=== PATIENT | female | born 1980 | race Caucasian/White ===

== ENCOUNTER 2016-12-11 08:41 | Emergency (ER) | payer OTHER, MEDICAID ==
[~2016-12-11] VITALS: Ht 154.9 cm; Wt 98.5 kg
[~2016-12-11 08:41] MED LIST: BLOOD GLUCOSE M1 KIT; GLIP5TAB8 PO; LISI-515 PO; METF1000 PO; MOBI15TA PO; PROP60TA PO
[2016-12-11 08:44] VITALS: BP 175/98; PULSE 124; RESP 18; TEMP 99.6; O2SAT 99
[2016-12-11] MEDS ORDERED: KETOROLAC TROMETHAMINE 30 MG/ML (IVP) VIAL IV PUSH ONE (09:30)
[2016-12-11 10:00] VITALS: BP 140/79; PULSE 120; RESP 16; O2SAT 97
--- NOTE | 2016-12-11 10:22 | PD ---
HPI Chief Complaint: Musculoskeletal Complaint Time Seen by Provider: 09:30 Travel History International Travel<30 days: No Contact w/Intl Traveler<30days: No Traveled to known affect area: No History of Present Illness HPI This is a 36-year-old female with a history of diabetes, and presents today with complaints of diffuse joint pain. The patient reports that all of her joints in her body hurt. She states that it was so severe today that she had difficulty getting out of bed. She does report recently she was started on a new diabetes medicine. She states she stopped it one week ago because they were concerned that it may be causing joint pain. She denies any fevers, chills. She denies any other complaints at the time of my examination. [facility] Past Medical History Diabetes: Yes (niddm) Hypertension: Yes Immunizations Current: Yes ?: Not LMP: 12/06/16 Social History Alcohol Use: Yes Tobacco Use: Yes Substance Use: No Allergies-Medications (Allergen,Severity, Reaction): Uncoded Allergies: TRADJENTA (Adverse Reaction, Intermediate, JOINT PAIN, 12/11/16) Reported Meds & Prescriptions Reported Meds & Active Scripts Active Naprosyn (Naproxen) 250 Mg Tab 250 Mg PO BID Glipizide 5 Mg Tab 5 Mg PO DAILY Take 30 minutes before a meal Mobic (Meloxicam) 15 Mg Tab 15 Mg PO DAILY Propranolol (Propranolol HCl) 60 Mg Tab 60 Mg PO DAILY Lisinopril 20 Mg Tab 20 Mg PO DAILY Blood Glucose Monitoring W/Device (Device) 1 Kit Kit 1 Kit .ROUTE Reported Metformin (Metformin HCl) 1,000 Mg Tab 1,000 Mg PO DAILY With a meal Review of Systems Except as stated in HPI: all other systems reviewed are Neg General / Constitutional: No: Fever, Chills HENT: No: Headaches, Lightheadedness Cardiovascular: No: Chest Pain or Discomfort, Palpitations Respiratory: No: Shortness of Breath Gastrointestinal: No: Nausea, Vomiting, Abdominal Pain Genitourinary: No: Frequency, Dysuria Musculoskeletal: Positive: Myalgias, Arthralgias, Edema (neck swelling.) Skin: No Rash, No Itching Neurologic: No: Weakness, Headache Physical Exam Narrative GENERAL: Well-nourished, well-developed patient. SKIN: Focused skin assessment warm/dry. HEAD: Normocephalic/atraumatic. EYES: No scleral icterus. No injection or drainage. NECK: Supple, trachea midline. No JVD or lymphadenopathy. CARDIOVASCULAR: Regular rate and rhythm without murmurs, gallops, or rubs. RESPIRATORY: Breath sounds equal bilaterally. No accessory muscle use. GASTROINTESTINAL: Abdomen soft, non-tender, nondistended. MUSCULOSKELETAL: No cyanosis, or edema. The patient has some warmth to her joints bilaterally in her ankles and elbows and shoulders. There is no redness. She has full range of motion. She reports pain with flexion and extension. NEUROLOGICAL: Awake and alert. Cranial nerves II through XII intact. Motor grossly within normal limits. Five out of 5 muscle strength in all muscle groups. Normal speech. Data Data Last Documented VS Vital Signs Date Time Temp Pulse Resp B/P Pulse Ox O2 Delivery O2 Flow Rate FiO2 12/11/16 10:00 120 16 140/79 97 Room Air 12/11/16 08:44 99.6 Orders Complete Blood Count With Diff (12/11/16 09:30) Comprehensive Metabolic Panel (12/11/16 09:30) Westergren Sedimentation Rate (12/11/16 09:30) Ketorolac Inj (Toradol Inj) (12/11/16 09:30) Labs Laboratory Tests Test 12/11/16 10:15 White Blood Count 8.7 TH/MM3 Red Blood Count 4.57 MIL/MM3 Hemoglobin 12.9 GM/DL Hematocrit 37.5 % Mean Corpuscular Volume 82.0 FL Mean Corpuscular Hemoglobin 28.2 PG Mean Corpuscular Hemoglobin 34.4 % Concent Red Cell Distribution Width 12.5 % Platelet Count 257 TH/MM3 Mean Platelet Volume 9.6 FL Neutrophils (%) (Auto) 64.8 % Lymphocytes (%) (Auto) 25.4 % Monocytes (%) (Auto) 6.4 % Eosinophils (%) (Auto) 2.5 % Basophils (%) (Auto) 0.9 % Neutrophils # (Auto) 5.7 TH/MM3 Lymphocytes # (Auto) 2.2 TH/MM3 Monocytes # (Auto) 0.6 TH/MM3 Eosinophils # (Auto) 0.2 TH/MM3 Basophils # (Auto) 0.1 TH/MM3 CBC Comment DIFF FINAL Differential Comment Erythrocyte Sedimentation Rate 58 mm/hr Sodium Level 136 MEQ/L Potassium Level 4.3 MEQ/L Chloride Level 102 MEQ/L Carbon Dioxide Level 24.3 MEQ/L Anion Gap 10 MEQ/L Blood Urea Nitrogen 11 MG/DL Creatinine 0.67 MG/DL Estimat Glomerular Filtration 101 ML/MIN Rate Random Glucose 252 MG/DL Calcium Level 8.8 MG/DL Total Bilirubin 0.4 MG/DL Aspartate Amino Transf 26 U/L (AST/SGOT) Alanine Aminotransferase 41 U/L (ALT/SGPT) Alkaline Phosphatase 86 U/L Total Protein 7.5 GM/DL Albumin 3.1 GM/DL MDM Medical Decision Making Medical Screen Exam Complete: Yes Emergency Medical Condition: Yes Differential Diagnosis Adverse reaction to medication versus rheumatoid arthritis versus osteoarthritis versus autoimmune disorder. Narrative Course 36-year-old female who presents with joint pain. The patient states her joints hurt all over. There is no asymmetry in her joint pain. The patient was recent started on new diabetic medicine and then had a canceled secondary to joint pain. It's been one week since the cancer and of her medicine. Sedimentation rate is slightly elevated at 50. I informed her that this is likely an acute inflammatory response and possibly could be related to her medication that was canceled. She was given a 30 mg dose of Toradol which she reports helped improve her discomfort. She is on metformin and therefore is limited what she can take for nonsteroidals. She will be started on Naprosyn 250 twice daily. She'll be given 7 days' worth. She is instructed to follow up with her primary care physician, Dr. Leary. If there is any worsening symptoms, she is instructed to return. Diagnosis Primary Impression: Diffuse arthralgia Additional Impression: Diabetes mellitus Additional Instructions: Called Dr. Leary office today for an appointment early next week. Return if feeling worse. Record blood sugars daily and bring with you when you follow up with Dr. Leary. Med/Other Pt SpecificInfo: Prescription(s) given Scripts Naproxen (Naprosyn)250 Mg [id number] Mg PO BID #14 TAB Ref 0 Prov:Jesus Forbes MD 12/11/16 Disposition: 01 DISCHARGE HOME Condition: Stable Jesus Forbes MD December 11, 2016 10:21
[2016-12-11 10:31] LABS: AUTOMATED NEUTROPHIL # 5.7 TH/MM3 (1.8-7.7); BASOPHIL # 0.1 TH/MM3 (0-0.2); BASOPHIL % 0.9 % (0.0-2.0); EOSINOPHIL # 0.2 TH/MM3 (0-0.4); EOSINOPHIL % 2.5 % (0.0-4.0); HEMATOCRIT 37.5 % (35.0-46.0); HEMO FLAGS DIFF FINAL; LYMPH % 25.4 % (9.0-44.0); LYMPHOCYTE # 2.2 TH/MM3 (1.0-4.8); MEAN CORPUSCULAR HEMOGLOBIN 28.2 PG (27.0-34.0); MEAN CORPUSCULAR HGB CONC 34.4 % (32.0-36.0); MONO % 6.4 % (0.0-8.0); NEUT % 64.8 % (16.0-70.0); PLATELET COUNT 257 TH/MM3 (150-450); RED BLOOD COUNT 4.57 MIL/MM3 (4.00-5.30); RED CELL DISTRIBUTION WIDTH 12.5 % (11.6-17.2); WHITE BLOOD COUNT 8.7 TH/MM3 (4.0-11.0)
[2016-12-11 11:05] LABS: ALKALINE PHOSPHATASE 86 U/L (45-117); ALT (GPT) 41 U/L (10-53); ANION GAP 10 MEQ/L (5-15); BICARBONATE 24.3 MEQ/L (21.0-32.0); BLOOD UREA NITROGEN 11 MG/DL (7-18); CHLORIDE 102 MEQ/L (98-107); GLOMERULAR FILTRATION RATE 101 ML/MIN (>89); SODIUM (NA) 136 MEQ/L (136-145); TOTAL BILIRUBIN ADULT 0.4 MG/DL (0.2-1.0)
[2016-12-11 11:06] LABS: AST (GOT) 26 U/L (15-37); POTASSIUM 4.3 MEQ/L (3.5-5.1)
[2016-12-11 12:00] VITALS: BP 132/71; PULSE 110; RESP 16; O2SAT 98
[2016-12-11] MEDS ORDERED: NAPR250T57 PO (12:09)
[2016-12-15] MEDS ORDERED: NAPR500 PO (14:47)
[2016-12-15] MEDS ORDERED: MEDR4PAK PO (14:47)
[2016-12-15] MEDS ORDERED: FLUC150T PO (14:51)
[2017-01-25] MEDS ORDERED: KETO2CRE TOPICAL (13:52)
[2017-01-25] MEDS ORDERED: FLUC150T PO (13:52)
== END 2016-12-11 12:48 | disposition home or self-care (01) ==
LOC: NEPC 08:41
DX: M25.50 Pain in unspecified joint (principal); M79.1 Myalgia; E11.9 Type 2 diabetes mellitus without complications; I10 Essential (primary) hypertension; Z72.0 Tobacco use
CPT/HCPCS: 80053; 85025; 85652; 96374; 99283; J1885

== ENCOUNTER → 2017-07-16 | Day surgery (SDC) | payer OTHER, MEDICAID ==
[~2017-07-16] MED LIST changes: +ACETAMINOPHEN 1000 MG/100 ML 100 ML IV ONE; +BUPIVACAINE/EPINEPHRINE 0.25% PF 30 ML VIAL ONE; +FLUC150T PO; +KETO2CRE TOPICAL; +KETOROLAC TROMETHAMINE 30 MG/ML (IVP) VIAL IV PUSH ONE; +MEDR4PAK PO; +MIDAZOLAM HCL 2 MG/2 ML VIAL ONE; -MOBI15TA PO; +NAPR500 PO; +ONDANSETRON HCL 4 MG/2 ML VIAL IV PUSH ONE; +PROPOFOL 200 MG/20 ML AMP IV ONE; +RESP: ALBUTEROL 2.5 MG/3 ML NEB (SCH) ONE; +ceFAZolin 2 GM PREMIX 50 ML ONE
--- NOTE | 2017-07-16 10:24 | TN ---
cc: RADHA HURTADO MD DATE OF SURGERY 07/16/2017 PREOPERATIVE DIAGNOSIS Left breast mass. POSTOPERATIVE DIAGNOSIS Left breast sebaceous cyst. PROCEDURE PERFORMED Excision of left breast sebaceous cyst 3 x 2 cm ANESTHESIA General SURGEON Radha Hurtado MD [employer] Staff ESTIMATED BLOOD LOSS 5 cc SPECIMEN Sebaceous cyst of the left breast. OPERATIVE FINDINGS The patient had a mass of the left medial breast. After incision and some dissection, there was a cyst capsules noted and sebum present in the cyst. This was clearly consistent with a large sebaceous cyst. PROCEDURE IN DETAIL The patient was taken to the operating room, placed in the supine position. General anesthesia was induced and the left breast and chest was prepped and draped in the usual sterile fashion. A surgical time-out was performed to verify correct patient, procedure and site. Initially no antibiotics were given, but after this was noted to be a sebaceous cyst, she was given Ancef two grams. A surgical time-out was performed to verify correct patient, procedure and site. Local anesthetic was injected in the skin and subcutaneous tissue in line with the edge of the breast medially towards the sternum and incision made. Dissection carried through subcutaneous tissue with electrocautery. A whitish-paulino smooth cyst capsule was encountered. The cyst was dissected from surrounding tissue with electrocautery and blunt dissection. It was about 3 x 2 cm. The cyst did rupture and had thick, cheesy sebum present inside of it. Finally, the entire cyst including the cyst capsule was fully excised. There was hemostasis in the cavity. The cavity was irrigated. The incision closed with deep dermal 3-0 Vicryl suture and subcuticular 4-0 Monocryl, as well as Mastisol and Dermabond. The patient tolerated the procedure well, was extubated and taken to PACU in stable condition. MD VEE Mosley/LÓPEZ /10:07 AM /10:18 AM
== END | disposition home or self-care (01) ==
LOC: ESDC 07:48
PROVIDERS: ATTEND Surgery
DX: L72.3 Sebaceous cyst (principal)
CPT/HCPCS: 00400; 19120; 88304; J0131; J0690; J1885; J2250; J2405; J3010; J7613; 88305